=== PATIENT | female | born 1940 | race African-American/Black ===

== ENCOUNTER → 2018-09-05 | Outpatient (CLI) | payer MEDICARE, MEDICAID ==
[~2018-09-05] MED LIST: ASPI-1236; BARIUM SULFATE 176 GM SUSP.RECON ONE; DIPH50CA4 PO; METO10TA3; OMEP40CA34 PO; PRAV20TA57 PO; ROPI0.257
== END | disposition home or self-care (01) ==
LOC: RAD 08:49
PROVIDERS: ATTEND Internal Medicine Gastroenterology
DX: K22.0 Achalasia of cardia (principal)
CPT/HCPCS: 74220

== ENCOUNTER 2019-06-17 07:30 | Day surgery (SDC) | payer MEDICARE, MEDICAID ==
[~2019-06-17] VITALS: Ht 154.9 cm; Wt 88.0 kg
[~2019-06-17 07:30] MED LIST changes: +BALANCED SALT IRRIG SOLN 15ML ONE; +BALANCED SALT IRRIG SOLN COMB1 500ML OP ONE; -BARIUM SULFATE 176 GM SUSP.RECON ONE; +CIPROFLOXACIN 0.3% OPHTH SOLN 2.5ML ONE; +CYCLOPENTOLATE HCL 1% OPHTH DROPS 2ML LEFTEYE ONE; +LACTATED RINGERS 1,000 ML IV SCH; +LIDOCAINE HCL/PF 2% 20 MG/ML 10ML VIAL ONE; +NEOMYCIN/POLYMYXN B/GRAMICIDIN OPHTH DROPS 10ML LEFTEYE SCH; +PHENYLEPHRINE HCL 10% OPHTH DROPS 5ML ONE; +PREDNISOLONE ACETATE 1% OPHTH DROPS 5ML ONE; +TETRACAINE 0.5% OPHTH DROPS 4ML ONE; +TROPICAMIDE 1% OPHTH DROPS 15ML LEFTEYE ONE
[2019-06-17] MEDS ORDERED: TRYPAN BLUE 0.5 ML DISP.SYRIN IO ONE (10:42)
[2019-06-17] MEDS ORDERED: HYALURONATE SODIUM 14 MG/ML 0.85ML SYRINGE IO ONE (10:42)
[2019-06-17] MEDS ORDERED: AMLO5TAB88 PO (10:44)
[2019-06-17] MEDS ORDERED: ISOS10TA2 PO (10:44)
[2019-06-17] MEDS ORDERED: NEOMY SULF/BACITRAC ZN/POLY/HC 1 APP TUBE OP SCH (11:00)
== END 2019-06-17 12:15 | disposition home or self-care (01) ==
LOC: OR 07:30
PROVIDERS: ATTEND Ophthalmology
DX: E11.36 Type 2 diabetes mellitus with diabetic cataract (principal); H25.21 Age-related cataract, morgagnian type, right eye; I11.0 Hypertensive heart disease with heart failure; I50.9 Heart failure, unspecified; E78.00 Pure hypercholesterolemia, unspecified; I25.10 Atherosclerotic heart disease of native coronary artery without angina pectoris; E66.9 Obesity, unspecified; M19.90 Unspecified osteoarthritis, unspecified site; Z90.49 Acquired absence of other specified parts of digestive tract; Z90.710 Acquired absence of both cervix and uterus; Z98.890 Other specified postprocedural states; Z79.82 Long term (current) use of aspirin; Z95.5 Presence of coronary angioplasty implant and graft; Z79.899 Other long term (current) drug therapy; Z68.36 Body mass index [BMI] 36.0-36.9, adult
CPT/HCPCS: 66982; J3490; Q9957; V2632